=== PATIENT | female | born 1960 | race Caucasian/White ===

== ENCOUNTER → 2016-05-11 | Outpatient (CLI) | payer BC ==
[~2016-05-11] MED LIST: OXYC-57 PO; SERT50TA PO
--- NOTE | 2016-05-11 13:52 | MAMMOGRAPHY REPORT ---
BILATERAL DIGITAL SCREENING MAMMOGRAM TOMOSYNTHESIS WITH CAD: 05/11/2016 CLINICAL HISTORY: Routine screening. Patient has no complaints. TECHNIQUE: Breast tomosynthesis in addition to standard 2D mammography was performed. Current study was also evaluated with a Computer Aided Detection (CAD) system. COMPARISON: Comparison is made to exams dated: 05/05/2013 mammogram and 09/05/2009 mammogram - [facility]. BREAST COMPOSITION: There are scattered areas of fibroglandular density in both breasts. FINDINGS: No suspicious masses, calcifications, or areas of architectural distortion are noted in e ither breast. There has been no significant interval change compared to prior exams. IMPRESSION: ACR BI-RADS CATEGORY 1: NEGATIVE There is no mammographic evidence of malignancy. A 1 year screening mammogram is recommended. The p atient will receive written notification of the results. Approximately 10% of breast cancers are not detected with mammography. A negative mammographic repor t should not delay biopsy if a clinically suggestive mass is present. Svitlana Hilario M.D. ah/:05/11/2016 12:55:00 Florist Helper: Sammie Quintero RT(R)(M), [facility] letter sent: Normal 1/2 BI-RADS Code: ACR BI-RADS Category 1: Negative
== END | disposition home or self-care (01) ==
LOC: C.MAMM 11:10
PROVIDERS: ATTEND Family Medicine
DX: Z12.31 Encounter for screening mammogram for malignant neoplasm of breast (principal)

== ENCOUNTER → 2017-10-16 | Outpatient (CLI) | payer OTHER ==
--- NOTE | 2017-10-16 13:27 | DIAGNOSTIC IMAGING REPORT ---
PELVIC COMPLETE NON OB HISTORY: 56 years-old Female DYSPARUNIA acute dyspareunia. The patient is reportedly postmenopausal. COMPARISON: Pelvic ultrasound 11/21/2009 TECHNIQUE: Multiple real-time sonographic images of the deep pelvic structures were obtained transabdominally and transvaginally assessing grayscale appearance, color and spectral flow FINDINGS: TRANSABDOMINAL: Anteflexed uterus measures 6.5 x 3.6 x 5.2 cm. No myometrial mass lesions are identified. TRANSVAGINAL: Anteflexed uterus appears to be within normal limits. No myometrial mass lesions identified. Endometrium is homogeneous, 0.2 cm which is within normal limits. Left ovary measures 1.7 x 1.1 x 0.9 cm and is unremarkable with follicles and arterial inflow documented. Right ovary is also unremarkable measuring 2.2 x 1.4 x 1.8 cm and demonstrates follicles with arterial inflow. No significant free pelvic fluid. IMPRESSION: 1. Unremarkable sonographic appearance of the bilateral ovaries without adnexal mass lesion or ovarian torsion. 2. Normal appearance of the uterus and endometrium. The above report was generated using voice recognition software. It may contain grammatical, syntax or spelling errors. Electronically signed by: Vik Nassar M.D. 10/16/2017 1:25 PM Dictated Date/Time: 10/16/2017 1:22 PM
== END | disposition home or self-care (01) ==
LOC: C.ULTR 12:32
PROVIDERS: ATTEND Family Medicine
DX: N94.10 Unspecified dyspareunia (principal)